=== PATIENT | female | born 1985 | race Caucasian/White ===

== ENCOUNTER 2016-05-08 10:28 | Emergency (ER) | payer BC, MEDICAID, OTHER ==
[2016-05-08 12:49] VITALS: BP 132/89
--- NOTE | 2016-05-08 14:17 | UC ---
Complaint Female HPI - HPI Summary HPI Summary: 30 female presents complaining of itching, thick white discharge from vagina and mild, intermittent burning with urination that started 2-3 days ago and has been getting worse. Patient states she thinks she has a yeast infection. She denies any odor or blood. She has never had one in the past. Requesting test. Patient is currently nursing and has a 7 month old baby. Does not want STD testing at this time. Has not had any new sexual partners. She has not tried any medication for her symptoms. Denies abdominal pain, fever/ chills and vomiting. - History Of Current Complaint Chief Complaint: UCGU Stated Complaint: UTI Time Seen by Provider: 05/08/16 13:12 Hx Obtained From: Patient Hx Last Menstrual Period: 04/05/16 ?: No Onset/Duration: Sudden Onset, Lasting Days, Worse Since Timing: Constant Severity Initially: Mild Severity Currently: Moderate Pain Intensity: 6 Pain Scale Used: 0-10 Numeric Character: Burning Aggravating Factor(s): Urination Alleviating Factor(s): Nothing Associated Signs And Symptoms: Positive: Vaginal Discharge. Negative: Fever, Back Pain, Nausea, Genital Swelling - Allergies/Home Medications Allergies/Adverse Reactions: Allergies Allergy/AdvReac Type Severity Reaction Status Date / Time Latex Allergy Unknown Rash Verified 05/08/16 12:49 CI Pigment Blue 63 Allergy GI Upset Verified 05/08/16 12:49 [From Tamiflu] Oseltamivir [From Tamiflu] Allergy GI Upset Verified 05/08/16 12:49 artifical orange Allergy Difficulty Uncoded 05/08/16 12:49 Breathing Home Medications: Home Medications Breast Feeding Supplement 2 tab PO SEE INSTRUCTIONS 05/08/16 [History] PMH/Surg Hx/FS Hx/Imm Hx Endocrine History Of: Denies: Diabetes, Thyroid Disease Cardiovascular History Of: 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 Denies: Hypertension, Pacemaker/ICD Respiratory History Of: Denies: COPD, Asthma GI/ History Of: Denies: Ulcer - Surgical History Surgical History: Yes Surgery Procedure, Year, and Place: CHOLECYSTECTOMY,APPENDECTOMY, TONSILLECTOMY - Family History Known Family History: Positive: None - Social History Alcohol Use: None Substance Use Type: None Smoking Status (MU): Never Smoked Tobacco - Immunization History Most Recent Influenza Vaccination: 12/18 Most Recent Tetanus Shot: through [employer] during Most Recent Pneumonia Vaccination: none Review of Systems Constitutional: Negative Skin: Negative Eyes: Negative ENT: Negative Respiratory: Negative Cardiovascular: Negative Gastrointestinal: Negative Genitourinary: Dysuria - some burning on external genitalia with urination, Other - discharge, itching Motor: Negative Neurovascular: Negative Musculoskeletal: Negative Neurological: Negative All Other Systems Reviewed And Are Negative: Yes Physical Exam Triage Information Reviewed: Yes Appearance: Well-Appearing, No Pain Distress, Well-Nourished Vital Signs: Initial Vital Signs Temp 98.4 F 05/08/16 12:43 Pulse 95 05/08/16 12:43 Resp 16 05/08/16 12:43 BP 132/89 05/08/16 12:43 Pulse Ox 99 05/08/16 12:43 Vital Signs Reviewed: Yes Eyes: Positive: Conjunctiva Clear ENT Exam: Normal Neck: Positive: Supple, Nontender, No Lymphadenopathy Respiratory: Positive: Chest non-tender, Lungs clear, Normal breath sounds, No respiratory distress Cardiovascular: Positive: RRR, No Murmur, Pulses Normal Abdomen Description: Positive: Nontender, No Organomegaly, Soft. Negative: CVA Tenderness (R), CVA Tenderness (L), Distended, Guarding Bowel Sounds: Positive: Present Musculoskeletal Exam: Normal Neurological Exam: Normal Psychological Exam: Normal Skin Exam: Normal UC Physical Exam Vital Signs On Initial Exam: Initial Vitals Temp Pulse Resp BP Pulse Ox 98.4 F 95 16 132/89 99 05/08/16 12:43 05/08/16 12:43 05/08/16 12:43 05/08/16 12:43 05/08/16 12:43 - Genitalia Exam Female Genitourinary: Normal External Exam - some erythema surounding, vulvovaginal, Cervix Closed, Other - erythema noted in vaginal canal. white, thick discharge in canal and cervix. no lesions or strawberry cervix noted. non tender Complaint Female Dx - Course Course Of Treatment: urinalysis and urine was obtained. test was negative. UA showed trace blood and WBC however too few for treatment and without symptoms. Patient will be treated for yeast infection with monistat for 7 days due to history and PE findings. patient would rather do topical than oral diflucan due to nursing. follow-up/return if symptoms worsen or do not improve. STD testing and Affirm cultures were sent. - Differential Dx/Diagnosis Differential Diagnosis/HQI/PQRI: Ectopic, , Sexually Transmitted Disease, Urinary Tract Infection, Other - candidiasis Provider Diagnoses: vulvovaginal candidiasis Discharge - Discharge Plan Condition: Stable Disposition: HOME Prescriptions: Miconazole VAG.SUPP* [Monistat7*] 100 mg VAGINAL BEDTIME #7 vag.supp Patient Education Materials: Vulvovaginal Candidiasis (ED) Referrals: Deandre Amador MD [Primary Care Provider] - Additional Instructions: Please use medication as prescribed until all medication is gone even if symptoms improve. If symptoms worsen or do not get better please return to or make an appointment with your OBGYN. Take probiotics orally. Follow-up with your primary care is recommended. You will receive a phonecall with the results from your cultures
== END 2016-05-08 14:40 | disposition home or self-care (01) ==
LOC: UCEAST 10:28
DX: B37.3 Candidiasis of vulva and vagina (principal); R30.0 Dysuria; Z32.02 Encounter for pregnancy test, result negative; Z90.49 Acquired absence of other specified parts of digestive tract; Z88.8 Allergy status to other drugs, medicaments and biological substances
CPT/HCPCS: 81002; 81025; 87086; 87480; 87491; 87510; 87591; 87661; 99212; G0463

== ENCOUNTER 2016-07-28 09:01 | Emergency (ER) | payer MEDICAID ==
[2016-07-28 09:33] VITALS: BP 119/79
--- NOTE | 2016-07-28 10:11 | UC ---
Eye Complaint HPI - HPI Summary HPI Summary: 10-yr-old and infant both have been treated for pink eye in the last week, both of them are improving well. Today woke with R eye irritated and crusted over. Was much redder this morning, but she washed with baby shampoo and now sx are decreased. Denies fever, nasal congestion, visual disturbance, or pain. - History of Current Complaint Hx Obtained From: Patient Hx Last Menstrual Period: 04/05/16 ?: No Onset/Duration: Gradual Onset, Lasting Hours Timing: Constant Severity Initially: Moderate Severity Currently: Mild Location of Injury: Conjunctiva Aggravating Factor(s): Nothing Alleviating Factor(s): Nothing Associated Signs And Symptoms: Positive: Drainage (Clear), Drainage (Purulent). Negative: Vision Impairment Bilateral <Pat Rueda - Last Filed: 07/28/16 10:07> <Lexi Kumar - Last Filed: 07/28/16 10:15> - History of Current Complaint Chief Complaint: UCEye Stated Complaint: POSSIBLE PINK EYE Time Seen by Provider: 07/28/16 10:01 - Allergies/Home Medications Allergies/Adverse Reactions: Allergies Allergy/AdvReac Type Severity Reaction Status Date / Time Latex Allergy Unknown Rash Verified 07/28/16 09:33 CI Pigment Blue 63 Allergy GI Upset Verified 07/28/16 09:33 [From Tamiflu] Oseltamivir [From Tamiflu] Allergy GI Upset Verified 07/28/16 09:33 artifical orange Allergy Difficulty Uncoded 07/28/16 09:33 Breathing PMH/Surg Hx/FS Hx/Imm Hx Endocrine History Of: Denies: Diabetes, Thyroid Disease Cardiovascular History Of: Denies: Cardiac Disorders - SVT as child, Hypertension, Pacemaker/ICD Respiratory History Of: Denies: COPD, Asthma GI/ History Of: Denies: Ulcer - Surgical History Surgical History: Yes Surgery Procedure, Year, and Place: CHOLECYSTECTOMY,APPENDECTOMY, TONSILLECTOMY C section - Family History Known Family History: Positive: Hypertension - Social History Lives: With Family Alcohol Use: None Substance Use Type: None Smoking Status (MU): Never Smoked Tobacco - Immunization History Most Recent Influenza Vaccination: 12/18 Most Recent Tetanus Shot: through [employer] during Most Recent Pneumonia Vaccination: none <Pat Rueda - Last Filed: 07/28/16 10:07> Review of Systems Constitutional: Negative Skin: Negative Eyes: Drainage, Eye Redness ENT: Negative Respiratory: Negative Cardiovascular: Negative Gastrointestinal: Negative Genitourinary: Negative Motor: Negative Neurovascular: Negative Musculoskeletal: Negative Neurological: Negative Psychological: Negative All Other Systems Reviewed And Are Negative: Yes <Pat Rueda - Last Filed: 07/28/16 10:07> Physical Exam Triage Information Reviewed: Yes Appearance: Well-Appearing, No Pain Distress, Obese Vital Signs: Initial Vital Signs Temp 99.7 F 07/28/16 09:26 Pulse 85 07/28/16 09:26 Resp 18 07/28/16 09:26 BP 119/79 07/28/16 09:26 Pulse Ox 100 07/28/16 09:26 Vital Signs Reviewed: Yes Eye Exam: Other - minimal drainage R eye Eyes: Positive: Conjunctiva Clear ENT Exam: Normal ENT: Positive: Normal ENT inspection, Hearing grossly normal, Pharynx normal, TMs normal. Negative: Nasal congestion, Nasal drainage, Tonsillar swelling Dental Exam: Normal Neck exam: Normal Neck: Positive: Supple, Nontender, No Lymphadenopathy Respiratory Exam: Normal Respiratory: Positive: Chest non-tender, Lungs clear, Normal breath sounds, No respiratory distress, No accessory muscle use Cardiovascular Exam: Normal Cardiovascular: Positive: RRR, No Murmur Musculoskeletal Exam: Normal Neurological Exam: Normal Neurological: Positive: Alert Psychological Exam: Normal Skin Exam: Normal <Pat Rueda - Last Filed: 07/28/16 10:07> Vital Signs: Initial Vital Signs Temp 99.7 F 07/28/16 09:26 Pulse 85 07/28/16 09:26 Resp 18 07/28/16 09:26 BP 119/79 07/28/16 09:26 Pulse Ox 100 07/28/16 09:26 <Lexi Kumar - Last Filed: 07/28/16 10:15> Eye Complaint Course/Dx - Differential Dx/Diagnosis Provider Diagnoses: Conjunctivitis R eye <Pat Rueda - Last Filed: 07/28/16 10:07> Discharge <Pat Rueda - Last Filed: 07/28/16 10:07> <Lexi Kumar - Last Filed: 07/28/16 10:15> - Discharge Plan Condition: Stable Disposition: HOME Prescriptions: Ciprofloxacin 0.3% OPTH.CHRISTOPHER* [Cipro 0.3% Opth*] 2 drop RIGHT EYE QID #5 ml Patient Education Materials: Conjunctivitis (ED) Referrals: Deandre Amador MD [Primary Care Provider] - Attestation Statement User Type: Provider - I was available for consult. This patient was seen by the MARGARITA. The patient was not presented to, seen by, or examined by me. <Lexi Kumar - Last Filed: 07/28/16 10:15>
== END 2016-07-28 10:10 | disposition home or self-care (01) ==
LOC: UCEAST 09:01
DX: H10.9 Unspecified conjunctivitis (principal)
CPT/HCPCS: 99212; G0463

== ENCOUNTER 2016-08-04 19:58 | Emergency (ER) | payer MEDICAID ==
[2016-08-04] MEDS ORDERED: Ondansetron INJ* 2 MG/ML VIAL IV ONE ×2 (21:30→23:50)
[2016-08-04] MEDS ORDERED: NS 0.9% 1000 ML* 2,000 ML IV ONE (21:30)
[2016-08-04 22:40] LABS: Hematocrit 46 % (35-47); Hemoglobin 15.2 g/dl (12.0-16.0); Mean Corpuscular HGB Conc 33 g/dl (31-36); Mean Corpuscular Hemoglobin 28 pg (27-31); Mean Corpuscular Volume 86 fL (80-97); Mean Platelet Volume 9 um3 (7.4-10.4); Red Blood Count 5.37 10^6/ul (4.0-5.4); Red Cell Distribution Width 14 % (10.5-15); White Blood Count 19.5 10^3/ul (3.5-10.8)
[2016-08-04 22:42] LABS: Comments Flag Yes
[2016-08-04 22:43] LABS: Add Diff/Slide Review? Slide Review Added
[2016-08-04 22:55] LABS: Albumin 4.3 g/dL (3.2-5.2); BUN/Creatinine Ratio 22.7 (8-20); Calcium 9.5 mg/dL (8.6-10.3); EGFR African American 136.2 (>60); EGFR Non-African American 105.9 (>60); Potassium 3.8 mmol/L (3.5-5.0); Total Bilirubin 0.6 mg/dL (0.2-1.0); Total Protein 8.3 g/dL (6.4-8.9)
[2016-08-04] MEDS ORDERED: Ondansetron INJ* 2 MG/ML VIAL ONE (23:51)
[2016-08-05] MEDS ORDERED: NS 0.9% 1000 ML* 1,000 ML IV ONE (01:02)
[2016-08-05 03:08] VITALS: BP 123/60
--- NOTE | 2016-08-05 07:59 | RAD ---
HISTORY: Abdominal pain COMPARISONS: None TECHNIQUE: Multiple transverse and longitudinal ultrasound images were obtained of the pelvis using grayscale, color Doppler, and M-Mode Doppler imaging using the endovaginal transducer. FINDINGS: UTERUS: The uterus is normal in shape, size, contour, and echotexture. GESTATION: There is a subchorionic, diamniotic twin .. Twin A: The crown-rump length measures 1.03 cm for a gestational age of 7 weeks and 1 day. The YAYO is March 22, 2017. cardiac motion is detected at a rate of 169 beats per minute. Gross movement is identified. anatomy cannot be assessed secondary to early dates. The amniotic fluid is qualitatively normal. There are no retroplacental fluid collections. Twin B: The crown-rump length measures 0.93 cm for a gestational age of 7 weeks and 0 days. The YAYO is March 21, 2018. cardiac motion is detected at a rate of 150 beats per minute. Gross movement is identified. anatomy cannot be assessed secondary to early dates. The amniotic fluid is qualitatively normal. There are no retroplacental fluid collections. CUL-DE-SAC: There is no free fluid within the cul-de-sac. RIGHT OVARY: The right ovary measures 3.7 x 2.4 x 3.1 cm. There is a 2.3 cm corpus luteum LEFT OVARY: The left ovary measures 3.6 x 1.6 x 2 cm. BLADDER: The bladder is not well visualized. IMPRESSION: TWIN, LIVE INTRAUTERINE GESTATION, WITH GESTATIONAL AGES OF 7 WEEKS AND 1 DAY AND 7 WEEKS 0 DAYS RESPECTIVELY BY CROWN-RUMP LENGTH
--- NOTE | 2016-08-06 21:18 | ED ---
Daisy Joseph Alok, scribed for Clarke Joyce on 08/04/16 at 2210 . GI/ HPI - HPI Summary HPI Summary: 31 y/o female presents to the ED with N/V/D and epigastric pain since last night. Pt is 8 weeks G/P/A = 3, 1, 1. Pt states that what began as simple nausea last night she attributed to morning sickness progressed into epigastric pain as well as SOB, dizziness, tunnel vision and feels like she "might pass out" today. Pt states she has been vomiting every 20 minutes since last night and has nothing left to vomit. Pt also c/o back pain due to continual vomiting. Her LMP was June 06 2016. Pt denies vaginal bleeding. - History of Current Complaint Chief Complaint: EDNauseaVomitDiarrh Time Seen by Provider: 08/04/16 21:20 Stated Complaint: SHORTNESS OF BREATH/NEAR SYNCOPE/8 WKS PREG Hx Obtained From: Patient Onset/Duration: Started Days Ago, Atraumatic, Still Present Timing: Constant Severity: Moderate Current Severity: Moderate Pain Intensity: 7 Location of Pain: Epigastric Associated Signs and Symptoms: Positive: Back Pain, Dizziness, Nausea, Vomiting , Diarrhea, Other: - SOB, "Tunnel Vision" Additional Signs & Symptoms: Positive: Positive Test - 8 weeks pregant , - 3, Para - 1. Negative: Vaginal Bleeding - Allergy/Home Medications Allergies/Adverse Reactions: Allergies Allergy/AdvReac Type Severity Reaction Status Date / Time Latex Allergy Unknown Rash Verified 08/04/16 20:04 CI Pigment Blue 63 Allergy GI Upset Verified 08/04/16 20:04 [From Tamiflu] Oseltamivir [From Tamiflu] Allergy GI Upset Verified 08/04/16 20:04 artifical orange Allergy Difficulty Uncoded 08/04/16 20:04 Breathing PMH/Surg Hx/FS Hx/Imm Hx Endocrine/Hematology History: Denies: Hx Diabetes, Hx Thyroid Disease Cardiovascular History: Denies: Hx Hypertension, Hx Pacemaker/ICD Respiratory History: Denies: Hx Asthma, Hx Chronic Obstructive Pulmonary Disease (COPD) GI History: Denies: Hx Ulcer Sensory History: Denies: Hx Hearing Aid Psychiatric History: Denies: Hx Panic Disorder - Surgical History Surgery Procedure, Year, and Place: CHOLECYSTECTOMY,APPENDECTOMY, TONSILLECTOMY C section - Immunization History Date of Tetanus Vaccine: unkown Date of Influenza Vaccine: denies Infectious Disease History: No Infectious Disease History: Denies: Hx Clostridium Difficile, Hx Hepatitis, Hx Human Immunodeficiency Virus (HIV), Traveled Outside the [place] in Last 30 Days - Family History Known Family History: Positive: Hypertension - Social History Occupation: Employed Full-time Alcohol Use: None Substance Use Type: Reports: None Smoking Status (MU): Never Smoked Tobacco Review of Systems Negative: Fever Positive: Shortness Of Breath Positive: Abdominal Pain, Vomiting, Diarrhea, Nausea Genitourinary: Other - Negative: vaginal bleeding Positive: no symptoms reported - Urinary Positive: Other - Back Pain Neurological: Other - Dizziness, "Tunnel Vision" All Other Systems Reviewed And Are Negative: Yes Physical Exam Triage Information Reviewed: Yes Vital Signs On Initial Exam: Initial Vitals Temp Pulse Resp BP Pulse Ox 97.3 F 125 15 131/85 99 08/04/16 20:03 08/04/16 20:03 08/04/16 20:03 08/04/16 20:03 08/04/16 20:03 Vital Signs Reviewed: Yes Appearance: Positive: Well-Appearing, No Pain Distress Skin: Positive: Warm, Skin Color Reflects Adequate Perfusion, Dry Head/Face: Positive: Normal Head/Face Inspection Eyes: Positive: EOMI, HERI ENT: Positive: Normal ENT inspection Neck: Positive: Supple, Nontender Respiratory/Lung Sounds: Positive: Clear to Auscultation, Breath Sounds Present Cardiovascular: Positive: RRR, Pulses are Symmetrical in both Upper and Lower Extremities Abdomen Description: Positive: Soft, Other: - Epigastric Tenderness Bowel Sounds: Positive: Present Musculoskeletal: Positive: Normal, Strength/ROM Intact Neurological: Positive: Normal, Sensory/Motor Intact, Alert, Oriented to Person Place, Time Diagnostics - Vital Signs Vital Signs Temp Pulse Resp BP Pulse Ox 08/04/16 20:03 97.3 F 125 15 131/85 99 - Laboratory Lab Results: Lab Results 08/04/16 08/04/16 08/04/16 Range/Units 22:30 22:30 22:30 WBC 19.5 H (3.5-10.8) 10^3/ul RBC 5.37 (4.0-5.4) 10^6/ul Hgb 15.2 (12.0-16.0) g/dl Hct 46 (35-47) % MCV 86 (80-97) fL MCH 28 (27-31) pg MCHC 33 (31-36) g/dl RDW 14 (10.5-15) % Plt Count 296 (150-450) 10^3/ul MPV 9 (7.4-10.4) um3 Neut % (Auto) 94.2 H (38-83) % Lymph % (Auto) 3.0 L (25-47) % Kay % (Auto) 1.9 (1-9) % Eos % (Auto) 0.1 (0-6) % Baso % (Auto) 0.8 (0-2) % Absolute Neuts (auto) 18.4 H (1.5-7.7) 10^3/ul Absolute Lymphs (auto) 0.6 L (1.0-4.8) 10^3/ul Absolute Monos (auto) 0.4 (0-0.8) 10^3/ul Absolute Eos (auto) 0 (0-0.6) 10^3/ul Absolute Basos (auto) 0.1 (0-0.2) 10^3/ul Absolute Nucleated RBC 0.01 10^3/ul Nucleated RBC % 0 Sodium 132 L (133-145) mmol/L Potassium 3.8 (3.5-5.0) mmol/L Chloride 100 L (101-111) mmol/L Carbon Dioxide 21 L (22-32) mmol/L Anion Gap 11 (2-11) mmol/L BUN 15 (6-24) mg/dL Creatinine 0.66 (0.51-0.95) mg/dL Est GFR ( Amer) 136.2 (>60) Est GFR (Non-Af Amer) 105.9 (>60) BUN/Creatinine Ratio 22.7 H (8-20) Glucose 110 H (70-100) mg/dL Calcium 9.5 (8.6-10.3) mg/dL Total Bilirubin 0.60 (0.2-1.0) mg/dL AST 13 (13-39) U/L ALT 16 (7-52) U/L Alkaline Phosphatase 66 (34-104) U/L Total Protein 8.3 (6.4-8.9) g/dL Albumin 4.3 (3.2-5.2) g/dL Globulin 4.0 (2-4) g/dL Albumin/Globulin Ratio 1.1 (1-3) Beta HCG, Quant 38596.00 mIU/mL Blood Type O Positive Antibody Screen Negative Result Diagrams: 08/04/16 22:30 08/04/16 22:30 Lab Statement: Any lab studies that have been ordered have been reviewed, and results considered in the medical decision making process. - Additional Comments Diagnostic Additional Comments: Pel/Trans US - IMPRESSION: Live twin with estimated age of 7 weeks, 0- 1 days, without definite abnormality. GIGU Course/Dx - Course Course Of Treatment: Pt came with in with N/V/D and no urinary symptoms. Pt does not want urine analysis. Labs and US shows twin . Pt responded well to Zofran and feels better now. Will discharge pt with recommendation to FU with PCP. - Diagnoses Provider Diagnoses: Twin , Gastroenteritis Discharge - Discharge Plan Condition: Stable Disposition: HOME Prescriptions: Ondansetron ODT TAB* [Zofran 4 MG Odt TAB*] 8 mg PO Q8H PRN #20 tab.odt MDD 3 PRN Reason: Vomiting Patient Education Materials: Gastroenteritis (ED) Referrals: Deandre Amador MD [Primary Care Provider] - 3 Days The documentation as recorded by the Daisy riggs Alok accurately reflects the service I personally performed and the decisions made by , Clarke Joyce.
== END 2016-08-05 03:18 | disposition home or self-care (01) ==
LOC: ED 19:58
DX: O26.891 Other specified pregnancy related conditions, first trimester (principal); R11.2 Nausea with vomiting, unspecified; R10.13 Epigastric pain; M54.9 Dorsalgia, unspecified; R42 Dizziness and giddiness; R19.7 Diarrhea, unspecified; Z3A.08 8 weeks gestation of pregnancy; K52.9 Noninfective gastroenteritis and colitis, unspecified
CPT/HCPCS: 36415; 76817; 80053; 84702; 85025; 86850; 86900; 86901; 96374; 96375; 99283; J2405

== ENCOUNTER 2017-03-03 04:49 | Inpatient (IN) | payer OTHER ==
[~2017-03-03 04:49] MED LIST: Sodium Citrate/Citric Acid* 15 ML UDC PO ONE
[2017-03-03] MEDS ORDERED: ceFOXitin 2 GM IVPREMIX* 2 GM/50 ML BAG IVPB ONE (07:00)
[2017-03-03] MEDS ORDERED: Morphine PF AMP (0.5MG/ML)* 5 MG/10 ML AMP ONE ×2 (07:48→08:28)
[2017-03-03] MEDS ORDERED: OXYTOCIN* 10 UNITS/ML 1 ML VIAL ONE (09:03)
[2017-03-03] MEDS ORDERED: HYDROmorphone INJ* 1 MG/ML CARPUJECT SYRINGE IV PRN (09:15)
[2017-03-03] MEDS ORDERED: Ondansetron INJ* 2 MG/ML VIAL IV PRN ×2 (09:15→09:18)
[2017-03-03] MEDS ORDERED: fentaNYL* 50 MCG/ML 2 ML VIAL (100 MCG VIAL) IV PRN (09:15)
[2017-03-03] MEDS ORDERED: DiMENhydriNATE IV* 50 MG/ML VIAL IV PUSH PRN ×2 (09:15→09:18)
[2017-03-03] MEDS ORDERED: Nalbuphine* 20 MG/ML 1 ML VIAL IV PRN ×3 (09:15→09:18)
[2017-03-03] MEDS ORDERED: diPHENhydraMINE IV* 50 MG/ML 1 ml VIAL (BENADRYL) IV PRN (09:15)
[2017-03-03] MEDS ORDERED: Ketorolac INJ* 30 MG/ML 1 ML VIAL ONE (09:17)
[2017-03-03] MEDS ORDERED: HYDROcodone/ACETAMIN 5-325 MG* 1 TAB PO PRN (09:18)
[2017-03-03] MEDS ORDERED: Scopolamine PATCH Remove* 1 NOTE MISC PATCH OFF PRN (09:18)
[2017-03-03] MEDS ORDERED: Naloxone* 2 MG in NS 0.9% 250 ML* 250 ML IV PRN (09:18)
[2017-03-03] MEDS ORDERED: Naloxone* 0.4 MG/ML 1 ML VIAL IV PRN (09:18)
[2017-03-03] MEDS ORDERED: oxyCODONE/Acetamin 5/325 MG* TAB PO PRN (09:18)
[2017-03-03] MEDS ORDERED: Scopolamine 1.5 mg* PATCH TRANSDERM PRN (09:18)
[2017-03-03] MEDS ORDERED: Zolpidem TAB* 5 MG PO PRN (09:53)
[2017-03-03] MEDS ORDERED: Dibucaine 1% 28.35 GM TUBE PR PRN (09:53)
[2017-03-03] MEDS ORDERED: Witch Hazel PAD* JAR TOPICAL PRN (09:53)
[2017-03-03] MEDS ORDERED: Glycerin ADULT SUPP PR PRN (09:53)
[2017-03-03] MEDS: diPHENhydraMINE IV* 50 MG/ML 1 ml VIAL (BENADRYL) IV PRN ×3 (10:18→22:10)
[2017-03-03] MEDS ORDERED: Oxytocin in LR* 20 UNITS/1,000 ML BAG IVPB ONE (10:37)
[2017-03-03] MEDS: Simethicone TAB* 80 MG TAB.CHEW PO SCH ×3 (12:10→20:25)
[2017-03-03] MEDS: Acetaminophen TAB* 325 MG PO PRN ×3 (12:50→22:10)
[2017-03-03] MEDS: Ketorolac INJ* 30 MG/ML 1 ML VIAL IV PRN (15:08)
[2017-03-03] MEDS: Docusate CAP* 100 MG PO SCH ×2 (15:10→20:25)
[2017-03-04] MEDS ORDERED: oxyCODONE/Acetamin 5/325 MG* TAB PO PRN (01:18)
[2017-03-04] MEDS: Ketorolac INJ* 30 MG/ML 1 ML VIAL IV PRN (01:27)
[2017-03-04] MEDS ORDERED: diPHENhydraMINE PO* 50 MG PO PRN (03:50)
[2017-03-04] MEDS: Ibuprofen TAB* 600 MG PO PRN ×2 (07:25→19:27)
[2017-03-04] MEDS: Simethicone TAB* 80 MG TAB.CHEW PO SCH ×4 (08:21→21:01)
[2017-03-04] MEDS: Docusate CAP* 100 MG PO SCH ×3 (08:21→21:01)
[2017-03-04 09:31] LABS: Hematocrit 33 % (35-47); Hemoglobin 11.3 g/dl (12.0-16.0); Mean Corpuscular HGB Conc 34 g/dl (31-36); Mean Corpuscular Hemoglobin 31 pg (27-31); Mean Corpuscular Volume 90 fL (80-97); Mean Platelet Volume 8 um3 (7.4-10.4); Red Cell Distribution Width 15 % (10.5-15); White Blood Count 12.9 10^3/ul (3.5-10.8)
[2017-03-04] MEDS: oxyCODONE/Acetamin 5/325 MG* TAB PO PRN ×3 (11:26→19:27)
--- NOTE | 2017-03-04 13:56 | OP ---
CC: Dr. Liza Nelson of [facility]. OPERATIVE REPORT: DATE OF OPERATION: 03/03/17 DATE OF : 89 SURGEON: Dr. Kim. PHOTOGRAPHIC ARTIST SURGEON: Dr. Nelson. ANESTHESIA: Spinal. PRE-OP DIAGNOSIS: Twin intrauterine at 38 weeks gestational age with gestational diabetes diet controlled and a prior section. POST-OP DIAGNOSIS: Twin intrauterine at 38 weeks gestational age with gestational diabetes diet controlled and a prior section. OPERATIVE PROCEDURE: Repeat low-transverse section. ESTIMATED BLOOD LOSS: 1 L. SPECIMEN SENT TO PATHOLOGY: Cord bloods from baby A and B. FLUIDS: She received 2800 cc of IV crystalloid fluid. URINE OUTPUT: Clear. FINDINGS: Delivery of a twin . Baby A was delivered through breech extraction, baby B was delivered in a cephalic presentation after an internal cephalic version. Baby A was a male , w eighed 6 pounds 15 ounces with Apgars of 8 and 9. Baby B was a female weighing 7 pounds 3 oun andrea with Apgars of 8 and 9. Placenta was grossly intact and it was sent to Pathology. There were no complications during this procedure. DESCRIPTION OF PROCEDURE: The patient was taken to the operating room where she was identified. She was placed on the operating room table where a spinal anesthetic was obtained without difficulty. S he was then placed in a supine position with a leftward tilt, prepped and draped in a normal sterile fashion. A Pfannenstiel skin incision was made with a knife and carried thorough to the underlying l melody of fascia. The fascia was then nicked in the midline and extended laterally with curved Steven sc issors. The fascia was then grasped superiorly and inferiorly with Cayetano clamps and dissected off s harply from the rectus muscle. The rectus muscle was in the midline bluntly. Peritoneum wa s identified, grasped with pickups, and entered sharply with Metzenbaum scissors and extended superio rly and inferiorly sharply. A bladder blade was inserted into the patient's abdomen. A bladder flap was was then created using Metzenbaum scissors over which the bladder blade was then reinserted. A low transverse incision was made with a knife and extended laterally with bandage scissors. The amni otic sac was ruptured. Baby A was noted to be in a breech presentation, the feet was grasped, and the baby was delivered through a breech extraction. The nose and mouth were suctioned. The cord was cl amped and cut and the infant was handed off to awaiting auto electrician. Baby B; I inserted my hand into the patient's uterus, baby was noted to be in a breech presentation, I was able to do a cephalic char rivka. I then ruptured the membranes and delivered the baby in a cephalic presentation. The nose and mouth were suctioned. The cord was clamped and cut and the infant was then handed off to awaiting p ediatrician. Cord bloods from baby A and B were obtained. The placenta was then completely removed manually and sent to Pathology. The uterus was then exteriorized, cleared off all clot and debris us ing moist laparotomy sponges. The uterine incision was then closed using 0 Polysorb suture in a runn ing locked fashion with a second imbricating layer of 0 Polysorb suture. The uterine incision was th en noted to be hemostatic. The uterus was then returned to the patient's abdomen. The gutters were then cleared off all clot and debris using moist laparotomy sponges. All the sponges and instruments were removed from the patient's abdomen and instrument count and sponge count was correct x1. At th is point, the peritoneum was closed using 3-0 Polysorb suture in a running fashion. The fascia was cl osed using 0 Polysorb suture in a running fashion. The subcuticular layer was closed using a 3-0 Valente ysorb to appropriate Karlos's fascia. The skin incision was then closed using 4-0 Monocryl suture and a subcuticular stitch. The patient tolerated the procedure well. Sponge, lap, and needle counts we re correct x2. She was then transferred to the recovery room area in stable condition. [id number]/[facility] #: [id number]
[2017-03-05] MEDS: oxyCODONE/Acetamin 5/325 MG* TAB PO PRN ×4 (00:34→15:08)
[2017-03-05] MEDS: Ibuprofen TAB* 600 MG PO PRN ×3 (04:19→17:49)
[2017-03-05] MEDS: Docusate CAP* 100 MG PO SCH ×3 (08:17→21:11)
[2017-03-05] MEDS: Simethicone TAB* 80 MG TAB.CHEW PO SCH ×4 (08:17→21:11)
[2017-03-05] MEDS ORDERED: Pneumococcal *Vac Polyvalent 0.5 ML VIAL IM ONE (09:00)
[2017-03-06] MEDS: Ibuprofen TAB* 600 MG PO PRN ×2 (00:34→08:05)
[2017-03-06] MEDS: oxyCODONE/Acetamin 5/325 MG* TAB PO PRN (05:49)
[2017-03-06] MEDS: Simethicone TAB* 80 MG TAB.CHEW PO SCH (08:06)
[2017-03-06] MEDS: Docusate CAP* 100 MG PO SCH (08:06)
[2017-03-06 08:27] VITALS: BP 116/63
== END 2017-03-06 13:17 | disposition home or self-care (01) | DRG 540 ==
LOC: MCHOB 04:49 → UNDOADMIN 04:49 → MCHOB 06:15
PROVIDERS: ADMIT Obstetrics & Gynecology; ATTEND Obstetrics & Gynecology
PROC: 10D00Z1 Extraction of Products of Conception, Low, Open Approach (ICD-10-PCS; principal; 2017-03-03 07:45)
DX: O32.1XX1 Maternal care for breech presentation, fetus 1 (principal); O30.043 Twin pregnancy, dichorionic/diamniotic, third trimester; Z37.2 Twins, both liveborn; O32.1XX2 Maternal care for breech presentation, fetus 2; O24.420 Gestational diabetes mellitus in childbirth, diet controlled; O34.211 Maternal care for low transverse scar from previous cesarean delivery; Z3A.38 38 weeks gestation of pregnancy
CPT/HCPCS: 36415; 76815; 85025; 88307; A9270-GY; J0694; J1200; J1885; J2300; J2590

== ENCOUNTER 2017-04-28 09:17 | Emergency (ER) | payer OTHER ==
[2017-04-28 09:55] VITALS: BP 128/78
[2017-04-28] MEDS ORDERED: Lidocaine 2% PF * 5 ML VIAL INJ ONE (10:05)
--- NOTE | 2017-04-28 10:50 | UC ---
Laceration HPI - HPI Summary HPI Summary: Pt was cleaning up a broken bottle and cut her right thumb on a piece of glass. She is currently and her last tetanus was administered within the last year for her . Bleeding has been stopped with direct pressure. Denies numbness/tingling. - History Of Current Complaint Chief Complaint: UCUpperExtremity Stated Complaint: CUT ON THUMB Time Seen by Provider: 04/28/17 10:00 Hx Obtained From: Patient Hx Last Menstrual Period: Laceration Location: Finger Mechanism Of Injury: Sharp Trauma Onset/Duration: Sudden Onset Severity: Mild Pain Intensity: 2 Pain Scale Used: 0-10 Numeric - Allergies/Home Medications Allergies/Adverse Reactions: Allergies Allergy/AdvReac Type Severity Reaction Status Date / Time Latex Allergy Unknown Rash Verified 03/03/17 07:48 CI Pigment Blue 63 Allergy GI Upset Verified 03/03/17 07:48 [From Tamiflu] Oseltamivir [From Tamiflu] Allergy GI Upset Verified 03/03/17 07:48 artifical orange Allergy Severe Anaphylatic Uncoded 03/03/17 07:48 Shock PMH/Surg Hx/FS Hx/Imm Hx Previously Healthy: Yes - Surgical History Surgical History: Yes Surgery Procedure, Year, and Place: CHOLECYSTECTOMY,APPENDECTOMY, TONSILLECTOMY C section (two) - Family History Known Family History: Positive: Hypertension - Social History Occupation: Employed Full-time Lives: With Family Alcohol Use: None Substance Use Type: None Smoking Status (MU): Never Smoked Tobacco Have You Smoked in the Last Year: No - Immunization History Most Recent Influenza Vaccination: declined Most Recent Tetanus Shot: through [facility] during Most Recent Pneumonia Vaccination: none Review of Systems Constitutional: Negative Skin: Other - Lac to right thumb Respiratory: Negative Cardiovascular: Negative Neurovascular: Negative Musculoskeletal: Negative All Other Systems Reviewed And Are Negative: Yes Physical Exam Triage Information Reviewed: Yes Appearance: Well-Appearing, No Pain Distress, Well-Nourished Vital Signs: Initial Vital Signs Temp 98.6 F 04/28/17 09:51 Pulse 78 04/28/17 09:51 Resp 16 04/28/17 09:51 BP 128/78 04/28/17 09:51 Pulse Ox 100 04/28/17 09:51 Vital Signs Reviewed: Yes Respiratory: Positive: Lungs clear, Normal breath sounds, No respiratory distress, No accessory muscle use Cardiovascular: Positive: RRR, No Murmur, Pulses Normal, Brisk Capillary Refill - Distal right thumb Musculoskeletal: Positive: Strength Intact - Right thumb, ROM Intact - Right thumb, No Edema - Right thumb Neurological: Positive: Alert, Other: - Sensations intact right thumb distal and proximal to injury Psychological: Positive: Age Appropriate Behavior Skin: Positive: Other - 7mm linear superficial laceration on the ulnar aspect of the right thumb extending around to the finger pad. Bleeding stopped with direct pressure. No tendon involvement, drainage, edema, or FB appreciated. Laceration Repair - Laceration Repair 1 Description: Linear Laceration Size After Repair: Length (cm) - 0.7 Anesthesia Used: 2.0% Lido Irrigation With Pressure Irrigation Device: Yes Closure Material: Sutures - FIVE 5-0 Closure Method: Single Layer Suture Of: Skin Suture Type: Nylon Laceration Course/Dx - Course/Dx Course Of Treatment: A time out was performed, witnessed, and signed. The area was irrigated with 100mL sterile saline. 2mL of 2% lidocaine without epi was administered and good anesthetization was achieved. An Iodine swab was used to cleanse the area. In the usual sterile fashion, FIVE 5-0 nylon sutures were placed. The wound was bandaged with telfa and tegaderm. Pt tolerated procedure well. - Differential Dx - Laceration/Wound Provider Diagnoses: 7mm superficial linear laceration to right thumb Discharge - Discharge Plan Condition: Stable Disposition: HOME Patient Education Materials: Laceration (ED) Referrals: Deandre Amador MD [Primary Care Provider] - Additional Instructions: If you develop a fever, shortness of breath, chest pain, new or worsening symptoms - please call your PCP or go to the ED. 1) Please keep the area bandaged, clean, dry, and intact for the next 24- 48hours. 2) If you develop a fever, colored or thick discharge, increased pain or swelling - please call your PCP or go to the ED. 3) Please return in 10-14 days to have your FIVE sutures removed.
== END 2017-04-28 10:57 | disposition home or self-care (01) ==
LOC: UCEAST 09:17
DX: S61.011A Laceration without foreign body of right thumb without damage to nail, initial encounter (principal); W25.XXXA Contact with sharp glass, initial encounter; Y92.9 Unspecified place or not applicable
CPT/HCPCS: 12001; 99211; G0463

== ENCOUNTER 2018-07-31 19:29 | Emergency (ER) | payer OTHER ==
[2018-07-31 19:55] VITALS: BP 140/77
--- NOTE | 2018-07-31 20:08 | UC ---
Back Pain HPI - HPI Summary HPI Summary: This patient is a 33-year-old female who presents to the urgent care with chief complaint of having back pain more the right than the left associated with a low -grade fever. She reports that the pain started last Wednesday worsening today. The patient has been having low-grade fever for which she has been taking ibuprofen. The pain is dull constant approximately 4-5 out of 10. She denies any history of kidney stones. She denies any dysuria or hematuria. She denies any nausea or vomiting. She has no other complaints. - History of Current Complaint Chief Complaint: UCBackPain Stated Complaint: BACK PAIN,FEVER Time Seen by Provider: 07/31/18 19:47 Hx Obtained From: Patient Hx Last Menstrual Period: 3 weeks ?: No Onset/Duration: Lasting Days, Still Present Timing: Constant Severity Initially: Mild Severity Currently: Moderate Pain Intensity: 7 - Allergies/Home Medications Allergies/Adverse Reactions: Allergies Allergy/AdvReac Type Severity Reaction Status Date / Time oseltamivir [From Tamiflu] Allergy Severe GI Upset Verified 07/31/18 20:00 orange flavor Allergy Intermediate GI Verified 07/31/18 20:00 MS CI Pigment Blue 63 Allergy GI Upset Verified 07/31/18 20:00 [From Tamiflu] PMH/Surg Hx/FS Hx/Imm Hx Previously Healthy: Yes Other Endocrine History: Gestational diabetes - Surgical History Surgical History: Yes Surgery Procedure, Year, and Place: CHOLECYSTECTOMY,APPENDECTOMY, TONSILLECTOMY C section (two) - Family History Known Family History: Positive: Hypertension - Social History Alcohol Use: None Substance Use Type: None Smoking Status (MU): Never Smoked Tobacco Have You Smoked in the Last Year: No - Immunization History Most Recent Influenza Vaccination: declined Most Recent Tetanus Shot: through [facility] during Most Recent Pneumonia Vaccination: none Review of Systems All Other Systems Reviewed And Are Negative: Yes Constitutional: Positive: Fever, Chills, Fatigue Skin: Positive: Negative Eyes: Positive: Negative ENT: Positive: Negative Respiratory: Positive: Negative Cardiovascular: Positive: Negative Gastrointestinal: Positive: Negative Genitourinary: Positive: Negative Motor: Positive: Negative Neurovascular: Positive: Negative Musculoskeletal: Positive: Other: - Back pain Neurological: Positive: Negative Psychological: Positive: Negative Is Patient Immunocompromised?: No Physical Exam - Summary Physical Exam Summary: VITAL SIGNS: Reviewed. GENERAL: Patient is a well developed and nourished female who is lying comfortable in the stretcher. Patient is not in any acute respiratory distress. HEAD AND FACE: Normocephalic and atraumatic. EYES: PERRLA, EOMI x 2, No injected conjunctiva. EARS: Hearing grossly intact. Ear canals and tympanic membranes are WNL. MOUTH: Oropharynx within normal limits. NECK: Supple, trachea is midline, no adenopathy, no JVD. CHEST: Symmetric, no tenderness at palpation LUNGS: Clear to auscultation bilaterally. No wheezing or crackles. CVS: RRR, S1 and S2 present, no murmurs or gallops appreciated. ABDOMEN: Soft, non-tender. No signs of distention. Positive bowel sounds. No rebound no guarding, and no masses palpated. No abdominal bruit or pulsations. EXTREMITIES: FROM in all major joints, no edema, no cyanosis or clubbing. NEURO: Alert and oriented x 3. No acute neurological deficits. Speech is normal. SKIN: Dry and warm Back: Positive CVA tenderness in right side. Vital Signs: Initial Vital Signs Temp 98 F 07/31/18 19:48 Pulse 104 07/31/18 19:48 Resp 17 07/31/18 19:48 BP 140/77 07/31/18 19:48 Pulse Ox 100 07/31/18 19:48 Back Pain Course/Dx - Course Course Of Treatment: Urinalysis is negative for UTI however the patient has blood in the urine. Since the patient has right CVA tenderness and she is been having a fever she was recommended to go to the ED for further workup and management. The patient understands and agrees. Patient declined ambulance transfer. - Differential Dx/Diagnosis Provider Diagnosis: Flank pain, Hematuria Discharge - Sign-Out/Discharge Documenting (check all that apply): Patient Departure All imaging exams completed and their final reports reviewed: No Studies - Discharge Plan Condition: Stable Disposition: HOME-RECOMMEND TO ED Patient Education Materials: Flank Pain (ED) Referrals: Deandre Amador MD [Primary Care Provider] - Additional Instructions: Patient was recommended to go to the emergency department for further workup and management. The patient declined ambulance transport. - Billing Disposition and Condition Condition: STABLE Disposition: Home-Recommend to ED
== END 2018-07-31 20:15 | disposition home health service (06) ==
LOC: UCEAST 19:29
DX: R10.9 Unspecified abdominal pain (principal); M54.9 Dorsalgia, unspecified; R31.9 Hematuria, unspecified; R50.9 Fever, unspecified; Z88.8 Allergy status to other drugs, medicaments and biological substances; Z91.02 Food additives allergy status
CPT/HCPCS: 81003; 84702; 99212; G0463

== ENCOUNTER 2018-07-31 20:47 | Emergency (ER) | payer OTHER ==
--- NOTE | 2018-07-31 22:16 | ED ---
Back Pain - HPI Summary HPI Summary: This patient is a 33 year old F presenting to [facility] referred by urgent care with a chief complaint of R lower back pain radiating to hip that began 2 days ago. The patient rates the pain 7/10 in severity. Symptoms aggravated by nothing. Symptoms alleviated by Ibuprofen and heating pad. Patient reports fever. Patient denies dysuria and hematuria. - History of Current Complaint Chief Complaint: EDFlankPain Stated Complaint: RIGHT FLANK PAIN,COMMING FROM Time Seen by Provider: 07/31/18 22:11 Hx Obtained From: Patient Hx Last Menstrual Period: 3 weeks Onset/Duration: Sudden Onset, Lasting Days, Still Present Onset/Duration: Started Days Ago, Atraumatic, Still Present Timing: Constant Back Pain Location: Is Discrete @ - R lower back Severity Initially: Moderate Severity Currently: Moderate Pain Intensity: 7 Pain Scale Used: 0-10 Numeric Aggravating Symptom(s): Nothing Alleviating Symptom(s): Heat, OTC Meds Associated Signs And Symptoms: Positive: Fever, Other - Negative dysuria and hematuria - Allergies/Home Medications Allergies/Adverse Reactions: Allergies Allergy/AdvReac Type Severity Reaction Status Date / Time oseltamivir [From Tamiflu] Allergy Severe GI Upset Verified 07/31/18 20:00 orange flavor Allergy Intermediate GI Verified 07/31/18 20:00 MS CI Pigment Blue 63 Allergy GI Upset Verified 07/31/18 20:00 [From Tamiflu] PMH/Surg Hx/FS Hx/Imm Hx Previously Healthy: No Endocrine/Hematology History: Denies: Hx Diabetes, Hx Thyroid Disease Cardiovascular History: Denies: Hx Hypertension, Hx Pacemaker/ICD Respiratory History: Denies: Hx Asthma, Hx Chronic Obstructive Pulmonary Disease (COPD) GI History: Denies: Hx Ulcer Sensory History: Denies: Hx Hearing Aid Psychiatric History: Denies: Hx Panic Disorder - Surgical History Surgery Procedure, Year, and Place: CHOLECYSTECTOMY,APPENDECTOMY, TONSILLECTOMY C section (two) - Immunization History Date of Tetanus Vaccine: unkown Date of Influenza Vaccine: denies Infectious Disease History: No Infectious Disease History: Denies: Hx Clostridium Difficile, Hx Hepatitis, Hx Human Immunodeficiency Virus (HIV), Traveled Outside the [place] in Last 30 Days - Family History Known Family History: Positive: Hypertension - Social History Occupation: Employed Part-time Lives: With Family Alcohol Use: None Hx Substance Use: No Substance Use Type: Reports: None Hx Tobacco Use: No Smoking Status (MU): Never Smoked Tobacco Have You Smoked in the Last Year: No Review of Systems Positive: Fever Negative: dysuria, hematuria Positive: Other - Positive R lower back pain All Other Systems Reviewed And Are Negative: Yes Physical Exam - Summary Physical Exam Summary: Appearance: Well-appearing, Well-nourished, lying in bed comfortably Skin: Warm, dry, no obvious rash Eyes: sclera anicteric, no conjunctival pallor ENT: mucous membranes moist, pharynx appears normal Neck: Supple, nontender Respiratory: Clear to auscultation, no signs of respiratory distress Cardiovascular: Normal S1, S2. No murmurs. Normal distal pulses in tibial and radial bilaterally. Abdomen: Soft, R CVA tenderness, normal active bowel sounds present Musculoskeletal: Normal, Strength/ROM Intact Neurological: A&Ox3, awake and alert, mentation is normal, speech is fluent and appropriate Psychiatric: affect is normal, does not appear anxious or depressed Triage Information Reviewed: Yes Vital Signs On Initial Exam: Initial Vitals Temp Pulse Resp BP Pulse Ox 98.5 F 90 20 145/79 98 07/31/18 20:58 07/31/18 20:58 07/31/18 20:58 07/31/18 20:58 07/31/18 20:58 Vital Signs Reviewed: Yes Diagnostics - Vital Signs Vital Signs Temp Pulse Resp BP Pulse Ox 07/31/18 20:58 98.5 F 90 20 145/79 98 - Laboratory Result Diagrams: 07/31/18 22:28 07/31/18 22:28 Lab Statement: Any lab studies that have been ordered have been reviewed, and results considered in the medical decision making process. - CT CT Abdomen and Pelvis CT Interpretation Completed By: Radiologist Summary of CT Findings: CT abdomen and pelvis reveals, per radiologist, 1. Multiple prominent mesenteric lymph nodes, particularly in the right lower quadrant of the abdomen, which are nonspecific and may be due to infectious inflammatory mild enteritis. 2. Hepatomegaly. 3. A small hiatal hernia. ED physician has reviewed this radiology report. Back Pain Course/Dx - Course Course Of Treatment: This patient is a 33 year old F presenting to [facility] referred by urgent care with a chief complaint of R lower back pain radiating to hip that began 2 days ago. Physical Exam Findings: CVA tenderness on the right. CT abdomen and pelvis reveals, per radiologist, 1. Multiple prominent mesenteric lymph nodes, particularly in the right lower quadrant of the abdomen , which are nonspecific and may be due to infectious inflammatory mild enteritis. 2. Hepatomegaly. 3. A small hiatal hernia. Bloodwork and UA obtained. Patient will be discharged with follow up from PCP. The patient is agreeable with this plan. - Diagnoses Provider Diagnoses: Mesenteric adenitis Discharge - Sign-Out/Discharge Documenting (check all that apply): Patient Departure - Discharge home Patient Received Moderate/Deep Sedation with Procedure: No - Discharge Plan Condition: Good Disposition: HOME Patient Education Materials: Mesenteric Adenitis (ED), Back Pain (ED) Referrals: Deandre Amador MD [Primary Care Provider] - 1 Week (if not improving) - Billing Disposition and Condition Condition: GOOD Disposition: Home - Attestation Statements Document Initiated by Morganibe: Yes Documenting Scribe: Pat Bonilla Provider For Whom Scribe is Documenting (Include Credential): Dr. Lloyd Thompson MD Scribe Attestation: IPat scribed for Dr. Lloyd Thompson MD on 08/01/18 at 0353. Scribe Documentation Reviewed: Yes Provider Attestation: The documentation as recorded by the Pat riggs accurately reflects the service I personally performed and the decisions made by me, Dr. Lloyd Thompson MD Status of Scribe Document: Viewed
[2018-07-31 22:29] LABS: Urine Appearance Cloudy; Urine Bilirubin Negative (Negative); Urine Blood Negative (Negative); Urine Color Yellow; Urine Glucose Negative (Negative); Urine Ketones Trace (Negative); Urine Nitrite Negative (Negative); Urine Protein Negative (Negative); Urine Specific Gravity 1.032 (1.010-1.030); Urine Urobilinogen Negative (Negative)
[2018-07-31 22:38] LABS: ABS Basophils 0.1 10^3/ul (0-0.2); ABS Eosinophils 0.6 10^3/ul (0-0.6); ABS Monocytes 0.5 10^3/ul (0-0.8); ABS Neutrophils 5.6 10^3/ul (1.5-7.7); ABS Nucleated RBC 0 10^3/ul; Eosinophil % 6.2 %; Hematocrit 38 % (33-41); Hemoglobin 12.6 g/dL (12.0-16.0); Lymphocyte % 30.4 %; Mean Corpuscular HGB Conc 34 g/dL (31-36); Mean Corpuscular Hemoglobin 29 pg (27-31); Mean Corpuscular Volume 87 fL (80-97); Nucleated Red Blood Cells % 0.1; Platelet Count 312 10^3/uL (150-450); Red Blood Count 4.36 10^6 /uL (3.70-4.87); Red Cell Distribution Width 14 % (10.5-15); White Blood Count 9.7 10^3/uL (3.5-10.8)
[2018-07-31 22:54] LABS: ALT 23 U/L (7-52); Albumin 4.1 g/dL (3.2-5.2); Albumin/Globulin Ratio 1.3 (1-3); Alkaline Phosphatase 64 U/L (34-104); BUN/Creatinine Ratio 20.5 (8-20); Blood Urea Nitrogen 17 mg/dL (6-24); C Reactive Protein 4.35 mg/L (<8.01); CO2 Carbon Dioxide 26 mmol/L (22-32); Calcium 9.5 mg/dL (8.6-10.3); Chloride 107 mmol/L (101-111); EGFR Non-African American 80.2 (>60); Globulin 3.1 g/dL (2-4); Glucose 108 mg/dL (70-100); Sodium 140 mmol/L (135-145); Total Protein 7.2 g/dL (6.4-8.9)
[2018-07-31 23:00] LABS: HCG Pregnancy < 0.60 mIU/mL
[2018-07-31 23:29] LABS: AST 16 U/L (13-39); Anion Gap 7 mmol/L (2-11)
[2018-08-01 02:30] VITALS: BP 108/73
== END 2018-08-01 02:26 | disposition home or self-care (01) ==
LOC: ED 20:47
DX: I88.0 Nonspecific mesenteric lymphadenitis (principal); M54.5 Low back pain; R50.9 Fever, unspecified
CPT/HCPCS: 36415; 74176; 80053; 81003; 83605; 83690; 84702; 85025; 86140; 99282

== ENCOUNTER 2019-02-12 11:27 | Emergency (ER) | payer OTHER ==
[2019-02-12 13:06] VITALS: BP 135/86
--- NOTE | 2019-02-12 13:07 | UC ---
Complaint Female HPI - HPI Summary HPI Summary: pain and burning with urination began this morning-no fevers chills or night sweats-is breat feeding also has a new sex partner and wants to be sure she does not have an STI - History Of Current Complaint Chief Complaint: UCGU Stated Complaint: URINARY ISSUE Time Seen by Provider: 02/12/19 13:05 Hx Obtained From: Patient Hx Last Menstrual Period: currently ?: No Onset/Duration: Sudden Onset, Lasting Days - 1, Still Present Timing: Constant Pain Intensity: 3 Pain Scale Used: 0-10 Numeric Character: Burning Aggravating Factor(s): Urination Alleviating Factor(s): Nothing Associated Signs And Symptoms: Positive: Negative - Allergies/Home Medications Allergies/Adverse Reactions: Allergies Allergy/AdvReac Type Severity Reaction Status Date / Time orange flavor Allergy Severe Anaphylatic Verified 02/12/19 13:06 Shock oseltamivir [From Tamiflu] AdvReac Severe GI Upset Verified 02/12/19 13:06 MS CI Pigment Blue 63 AdvReac GI Upset Verified 02/12/19 13:06 [From Tamiflu] Home Medications: Home Medications Multivitamin [Multivitamins] 1 cap PO DAILY 02/12/19 [History Confirmed 02/12/19 ] PMH/Surg Hx/FS Hx/Imm Hx Previously Healthy: Yes - Surgical History Surgical History: Yes Surgery Procedure, Year, and Place: CHOLECYSTECTOMY,APPENDECTOMY, TONSILLECTOMY , C section (two) - Family History Known Family History: Positive: Hypertension - Social History Occupation: Works From/At Home Lives: With Family Alcohol Use: None Substance Use Type: None Smoking Status (MU): Never Smoked Tobacco Have You Smoked in the Last Year: No - Immunization History Most Recent Influenza Vaccination: declined Most Recent Tetanus Shot: through [facility] during Most Recent Pneumonia Vaccination: none Review of Systems All Other Systems Reviewed And Are Negative: Yes Constitutional: Positive: Negative Skin: Positive: Negative Eyes: Positive: Negative ENT: Positive: Negative Respiratory: Positive: Negative Cardiovascular: Positive: Negative Gastrointestinal: Positive: Negative Genitourinary: Positive: Dysuria, Frequency, Urgency Motor: Positive: Negative Neurovascular: Positive: Negative Musculoskeletal: Positive: Negative Neurological: Positive: Negative Psychological: Positive: Negative Is Patient Immunocompromised?: No Physical Exam Triage Information Reviewed: Yes Appearance: Well-Appearing, No Pain Distress, Well-Nourished Vital Signs: Initial Vital Signs Temp 97.5 F 02/12/19 13:03 Pulse 100 02/12/19 13:03 Resp 16 02/12/19 13:03 BP 135/86 02/12/19 13:03 Pulse Ox 99 02/12/19 13:03 Vital Signs Reviewed: Yes Eye Exam: Normal Eyes: Positive: Conjunctiva Clear ENT Exam: Normal ENT: Positive: Normal ENT inspection, Hearing grossly normal. Negative: Trismus , Muffled voice, Hoarse voice Dental Exam: Normal Neck exam: Normal Neck: Positive: Supple, Nontender Respiratory Exam: Normal Respiratory: Positive: Chest non-tender, No respiratory distress, No accessory muscle use Cardiovascular Exam: Normal Cardiovascular: Positive: RRR, Pulses Normal, Brisk Capillary Refill Abdominal Exam: Normal Abdomen Description: Positive: Nontender, No Organomegaly, Soft. Negative: CVA Tenderness (R), CVA Tenderness (L), McBurney's Point Tenderness Bowel Sounds: Positive: Present Musculoskeletal Exam: Normal Musculoskeletal: Positive: Strength Intact, ROM Intact Neurological Exam: Normal Neurological: Positive: Alert, Muscle Tone Normal Psychological Exam: Normal Skin Exam: Normal Complaint Female Dx - Course Course Of Treatment: culture urina and obtain addition labs-follow with pcp this week as needed - Differential Dx/Diagnosis Provider Diagnosis: UTI (urinary tract infection), Screen for STD (sexually transmitted disease) Discharge ED - Sign-Out/Discharge Documenting (check all that apply): Patient Departure All imaging exams completed and their final reports reviewed: No Studies - Discharge Plan Condition: Stable Disposition: HOME Prescriptions: Cephalexin CAP* [Keflex CAP*] 500 mg PO BID 10 Days #20 cap Patient Education Materials: Cephalexin (By mouth), Urinary Tract Infection in Women (ED) Referrals: Deandre Amador MD [Primary Care Provider] - If Needed - Billing Disposition and Condition Condition: STABLE Disposition: Home
[2019-02-13 13:08] LABS: Hepatitis C Antibody Negative (Negative)
[2019-02-13 13:15] LABS: HIV 4th Generation Nonreactive (Nonreactive)
[2019-02-14 12:19] LABS: Chlamydia trachomatis NAA Negative (Negative); Neisseria gonorrhoeae (GC) NAA Negative (Negative)
== END 2019-02-12 13:52 | disposition home or self-care (01) ==
LOC: UCEAST 11:27
DX: N39.0 Urinary tract infection, site not specified (principal); Z11.3 Encounter for screening for infections with a predominantly sexual mode of transmission; Z91.02 Food additives allergy status; Z91.09 Other allergy status, other than to drugs and biological substances; Z88.8 Allergy status to other drugs, medicaments and biological substances
CPT/HCPCS: 36415; 81003; 84702; 86780; 86803; 87077; 87086; 87186; 87389; 87491; 87591; 99212; G0463

== ENCOUNTER 2019-09-29 10:53 | Inpatient (IN) ==
[~2019-09-29 10:53] MED LIST changes: +HYDROmorphone 1 MG/1 ML SYRINGE IV PRN; +Naloxone 0.4 mg VIAL 0.4 mg/ml 1 ml VIAL IV PRN; +Prochlorperazine 5 mg/ml 2 ml VIAL (10 mg) IV PRN; -Sodium Citrate/Citric Acid* 15 ML UDC PO ONE; +diPHENhydraMINE IV 50 MG/ML 1 ml VIAL (BENADRYL) IV PRN
[2019-09-29] MEDS ORDERED: Propofol 10 MG/ML 20 ML BTL ONE (12:07)
[2019-09-29] MEDS ORDERED: fentaNYL 250 mcg/5 ml 50 MCG/ML 5 ml VIAL (250 MCG) ONE (12:07)
[2019-09-29] MEDS ORDERED: Midazolam 2 mg/2 ml VIAL 1 mg/ml 2 ml VIAL (2 mg) ONE ×2 (12:07→16:24)
[2019-09-29] MEDS ORDERED: Lidocaine 1% w EPI 1:100,000 MDV 20 ML VIAL ONE (12:43)
[2019-09-29] MEDS ORDERED: Dexamethasone IV 4 MG/ML VIAL 1 ml VIAL ONE (13:31)
[2019-09-29] MEDS ORDERED: fentaNYL 100 mcg/2 ml 50 MCG/ML VIAL ONE ×3 (13:37→17:37)
[2019-09-29] MEDS ORDERED: HYDROmorphone 1 MG/1 ML SYRINGE ONE (14:48)
[2019-09-29] MEDS ORDERED: Propofol 10 mg/ml 100 ML BTL 100 ML ONE (16:45)
[2019-09-29] MEDS ORDERED: Remifentanil 2 MG VIAL ONE (16:58)
[2019-09-29] MEDS ORDERED: Propofol 10 mg/ml 100 ML BTL 100 ML IV SCH ×2 (17:00→17:01)
[2019-09-29] MEDS ORDERED: fentaNYL 100 mcg/2 ml 50 MCG/ML VIAL IV SLOW PU PRN (17:20)
[2019-09-29] MEDS: fentaNYL 100 mcg/2 ml 50 MCG/ML VIAL IV SLOW PU PRN ×2 (17:40→19:23)
[2019-09-29] MEDS ORDERED: fentaNYL INFUSION 50 MCG/ML 2,500 MCG/50 ML BAG IV SCH ×2 (18:00→18:55)
[2019-09-29 18:08] LABS: BUN/Creatinine Ratio 15.1 (8-20); Blood Urea Nitrogen 14 mg/dL (6-24); CO2 Carbon Dioxide 26 mmol/L (22-32); Calcium 9.2 mg/dL (8.6-10.3); Chloride 103 mmol/L (101-111); EGFR African American 84.5 (>60); EGFR Non-African American 69.9 (>60); Glucose 120 mg/dL (70-100); Phosphorus 4.2 mg/dL (2.5-5.0); Sodium 135 mmol/L (135-145)
[2019-09-29 18:10] LABS: Anion Gap 6 mmol/L (2-11)
[2019-09-29] MEDS: Lactated Ringers 1000 ml BAG 1,000 ML IV SCH (18:17)
[2019-09-29 18:56] LABS: Magnesium 1.6 mg/dL (1.9-2.7); Potassium Redraw 3.8 mmol/L (3.5-5.0)
[2019-09-29] MEDS ORDERED: Magnesium Sulfate 2 gm BAG 2 GM/50 ML BAG IVPB ONE (19:01)
[2019-09-29 19:30] LABS: Calcium 9.2 mg/dL (8.6-10.3)
[2019-09-29] MEDS: Propofol 10 mg/ml 100 ML BTL 100 ML IV SCH ×2 (19:39→23:33)
[2019-09-29] MEDS: Chlorhexidine MOUTHWASH 0.12% 15 ML UDC TOPICAL SCH (19:40)
[2019-09-29] MEDS: Famotidine IV 10 MG/ML 2 ml VIAL (20 mg) IV SLOW PU SCH (21:09)
[2019-09-30] MEDS: Chlorhexidine MOUTHWASH 0.12% 15 ML UDC TOPICAL SCH ×7 (00:26→23:27)
[2019-09-30] MEDS: Propofol 10 mg/ml 100 ML BTL 100 ML IV SCH ×8 (01:31→20:40)
[2019-09-30] MEDS: Lactated Ringers 1000 ml BAG 1,000 ML IV SCH ×3 (01:59→18:10)
[2019-09-30 02:37] LABS: INR 1.13 (0.82-1.09)
[2019-09-30 02:48] LABS: BUN/Creatinine Ratio 13.3 (8-20); Calcium 8.6 mg/dL (8.6-10.3); EGFR African American 108.4 (>60); EGFR Non-African American 89.6 (>60); Potassium 4.1 mmol/L (3.5-5.0)
[2019-09-30 03:49] LABS: Hematocrit 34 % (35-47); Hemoglobin 11.7 g/dL (12.0-16.0); Mean Corpuscular HGB Conc 34 g/dL (31-36); Mean Corpuscular Hemoglobin 29 pg (27-31); Mean Corpuscular Volume 86 fL (80-97); Mean Platelet Volume 8.1 fL (7.4-10.4); Platelet Count 267 10^3/uL (150-450); Red Blood Count 3.98 10^6 /uL (3.70-4.87); Red Cell Distribution Width 13 % (10-15); White Blood Count 12.5 10^3/uL (3.5-10.8)
[2019-09-30] MEDS: Levothyroxine 100 MCG/5 ML VIAL IV SCH (05:38)
[2019-09-30] MEDS: Famotidine IV 10 MG/ML 2 ml VIAL (20 mg) IV SLOW PU SCH ×2 (10:29→21:29)
[2019-09-30] MEDS: ceFAZolin 1 GM ADVAN(*) 1 GM in NS 0.9% 50 ML 50 ML IVPB SCH ×2 (13:14→20:40)
[2019-09-30] MEDS: fentaNYL 100 mcg/2 ml 50 MCG/ML VIAL IV SLOW PU PRN ×4 (20:41→23:37)
[2019-10-01] MEDS: Propofol 10 mg/ml 100 ML BTL 100 ML IV SCH ×8 (00:35→21:26)
[2019-10-01] MEDS: Lactated Ringers 1000 ml BAG 1,000 ML IV SCH ×2 (01:10→17:38)
[2019-10-01] MEDS: fentaNYL 100 mcg/2 ml 50 MCG/ML VIAL IV SLOW PU PRN ×5 (01:10→05:56)
[2019-10-01] MEDS: ceFAZolin 1 GM ADVAN(*) 1 GM in NS 0.9% 50 ML 50 ML IVPB SCH (03:28)
[2019-10-01] MEDS: Chlorhexidine MOUTHWASH 0.12% 15 ML UDC TOPICAL SCH ×5 (03:45→20:04)
[2019-10-01] MEDS: Levothyroxine 100 MCG/5 ML VIAL IV SCH (04:54)
[2019-10-01 05:33] LABS: Calcium 7.8 mg/dL (8.6-10.3); EGFR African American 97.8 (>60); EGFR Non-African American 80.8 (>60); Potassium 3.4 mmol/L (3.5-5.0)
[2019-10-01] MEDS: Famotidine IV 10 MG/ML 2 ml VIAL (20 mg) IV SLOW PU SCH ×2 (08:02→20:05)
[2019-10-01] MEDS: Dexmedetomidine 1,000 MCG in NS 0.9% 250 ml 240 ML IV SCH ×2 (09:55→21:44)
[2019-10-01] MEDS: KCL 20 MEQ/100 ML IVPREMIX 20 MEQ/100 ML BAG IV SCH ×2 (11:17→14:35)
[2019-10-01] MEDS: Dexamethasone IV 4 MG/ML VIAL 1 ml VIAL IV SLOW PU SCH (23:16)
[2019-10-02] MEDS: Chlorhexidine MOUTHWASH 0.12% 15 ML UDC TOPICAL SCH (00:15)
[2019-10-02] MEDS: Lactated Ringers 1000 ml BAG 1,000 ML IV SCH (02:01)
[2019-10-02] MEDS: Dexmedetomidine 1,000 MCG in NS 0.9% 250 ml 240 ML IV SCH (05:24)
[2019-10-02] MEDS: Dexamethasone IV 4 MG/ML VIAL 1 ml VIAL IV SLOW PU SCH ×3 (05:52→18:09)
[2019-10-02] MEDS: Levothyroxine 100 MCG/5 ML VIAL IV SCH (05:53)
[2019-10-02 06:16] LABS: BUN/Creatinine Ratio 9.5 (8-20); Calcium 8.3 mg/dL (8.6-10.3); EGFR African American 110.1 (>60); Potassium 4.2 mmol/L (3.5-5.0)
[2019-10-02] MEDS: Famotidine IV 10 MG/ML 2 ml VIAL (20 mg) IV SLOW PU SCH (11:37)
[2019-10-02] MEDS ORDERED: Piperacillin/Tazobac ADVAN(*) 3.375 GM in NS 0.9% 100 ml BAG 100 ML IVPB ONE (13:42)
[2019-10-02] MEDS ORDERED: Zosyn per Pharmacy NOTE FOLLOW UP SCH (14:00)
[2019-10-02 14:29] LABS: ABS Lymphocytes 0.9 10^3/ul (1.0-4.8); ABS Monocytes 0.3 10^3/ul (0-0.8); Eosinophil % 0.1 %; Hematocrit 36 % (35-47); Hemoglobin 12.2 g/dL (12.0-16.0); Lymphocyte % 6.6 %; Mean Corpuscular HGB Conc 34 g/dL (31-36); Mean Corpuscular Hemoglobin 29 pg (27-31); Mean Corpuscular Volume 85 fL (80-97); Mean Platelet Volume 8.2 fL (7.4-10.4); Platelet Count 290 10^3/uL (150-450); Red Blood Count 4.22 10^6 /uL (3.70-4.87); Red Cell Distribution Width 13 % (10-15); White Blood Count 12.9 10^3/uL (3.5-10.8)
[2019-10-02] MEDS: ZOSYN 3.375 GM Q8H per EXTENDED INFUSION IV SCH (18:10)
[2019-10-02] MEDS ORDERED: Calamine LOTION BTL TOPICAL PRN (21:30)
[2019-10-03] MEDS: ZOSYN 3.375 GM Q8H per EXTENDED INFUSION IV SCH (02:41)
[2019-10-03] MEDS: Levothyroxine 100 MCG/5 ML VIAL IV SCH (07:05)
[2019-10-03 07:25] VITALS: BP 124/89
[2019-10-03 08:29] LABS: Hematocrit 36 % (35-47); Hemoglobin 12.6 g/dL (12.0-16.0); Mean Corpuscular HGB Conc 35 g/dL (31-36); Mean Corpuscular Hemoglobin 30 pg (27-31); Mean Corpuscular Volume 84 fL (80-97); Red Blood Count 4.24 10^6 /uL (3.70-4.87); Red Cell Distribution Width 13 % (10-15)
[2019-10-03 09:23] LABS: Platelet Count Platelets clumped. 10^3/uL (150-450)
== END 2019-10-03 10:15 | disposition home or self-care (01) | DRG 404 ==
LOC: OR 10:53 → ICU 17:18
PROVIDERS: ADMIT Otolaryngology; ATTEND Internal Medicine Critical Care Medicine